=== PATIENT | male | born 1990 | race American Indian/Alaskan Native ===

== ENCOUNTER 2016-11-06 05:15 | Emergency (ER) | payer SELFPAY ==
[2016-11-06 05:34] VITALS: BP 130/88
[2016-11-06] MEDS ORDERED: NORCO 5/325 PO ONE (06:04)
--- NOTE | 2016-11-06 06:08 | Emergency Department Report ---
<NERISSA RAY - Last Filed: 11/06/16 06:03> - General Chief Complaint: Upper Respiratory Infection Stated Complaint: BURNING CHEST, FEVER Time Seen by Provider: 11/06/16 06:02 Source: patient Mode of arrival: Ambulatory Limitations: No Limitations - History of Present Illness Initial Comments: 5-year-old -[place] male comes in for complaint of fever cough nasal congestion chest congestion chest pain with burning after coughing. He reports that he had a fever that started on Thursday at 102. All symptoms started on Thursday. Patient reports is been taken Robitussin Motrin and Aleve without much relief. He has no known drug allergies no past medical history. MD Complaint: fever, cough, rhinorrhea, nasal congestion, other (sneezing) - Related Data Previous Rx's Medication Instructions Recorded Last Taken Type Hydroxyzine HCl 25 mg PO Q6HR PRN #16 tablet 02/15/16 Unknown Rx Permethrin 5% [Acticin 5% CREAM] 1 applicatio TP ONCE #60 gm 02/15/16 Unknown Rx Cetirizine HCl [ZyrTEC] 10 mg PO QDAY #30 capsule 11/06/16 Unknown Rx Fluticasone [Flonase] 1 spray NS QDAY #1 bottle 11/06/16 Unknown Rx Promethazine /Codeine 5 ml PO Q6H PRN #100 ml 11/06/16 Unknown Rx [Phenergan/Codeine 6.25-10 mg/5 ml] Allergies Allergy/AdvReac Type Severity Reaction Status Date / Time No Known Allergies Allergy Unverified 02/14/16 16:35 ED Review of Systems ROS: Stated complaint: BURNING CHEST, FEVER Other details as noted in HPI Constitutional: chills, fever ENT: congestion Respiratory: cough, shortness of breath Cardiovascular: chest pain Endocrine: no symptoms reported Gastrointestinal: denies: abdominal pain, nausea, diarrhea Genitourinary: denies: urgency, dysuria ED Past Medical Hx - Past Medical History Previous Medical History?: No - Surgical History Past Surgical History?: No - Social History Smoking Status: Current Every Day Smoker Substance Use Type: Alcohol - Medications Home Medications: Home Medications Medication Instructions Recorded Confirmed Last Taken Type Hydroxyzine HCl 25 mg PO Q6HR PRN #16 tablet 02/15/16 Unknown Rx Permethrin 5% [Acticin 5% CREAM] 1 applicatio TP ONCE #60 gm 02/15/16 Unknown Rx Cetirizine HCl [ZyrTEC] 10 mg PO QDAY #30 capsule 11/06/16 Unknown Rx Fluticasone [Flonase] 1 spray NS QDAY #1 bottle 11/06/16 Unknown Rx Promethazine /Codeine 5 ml PO Q6H PRN #100 ml 11/06/16 Unknown Rx [Phenergan/Codeine 6.25-10 mg/5 ml] ED Physical Exam - General Limitations: No Limitations General appearance: alert, in no apparent distress - Head Head exam: Present: atraumatic, normocephalic - Eye Eye exam: Present: normal appearance, PERRL, EOMI - ENT ENT exam: Present: mucous membranes dry, TM's normal bilaterally - Neck Neck exam: Present: normal inspection, full ROM. Absent: tenderness, lymphadenopathy, thyromegaly - Respiratory Respiratory exam: Present: normal lung sounds bilaterally, chest wall tenderness. Absent: respiratory distress, wheezes - Cardiovascular Cardiovascular Exam: Present: regular rate, normal rhythm, normal heart sounds ED Course Vital Signs 11/06/16 11/06/16 05:21 06:32 Temperature 99.8 F H Pulse Rate 99 H Respiratory 20 20 Rate Blood Pressure 130/88 O2 Sat by Pulse 100 Oximetry ED Medical Decision Making - Medical Decision Making Patient been evaluated by this provider fast track. We will give patient a Brantley to help with this cough as well as his chest discomfort. Would discharge patient on Zyrtec and Flonase. Will give patient promethazine with codeine to help with his cough. Patient verbalized understanding Critical care attestation.: If time is entered above; I have spent that time in minutes in the direct care of this critically ill patient, excluding procedure time. ED Disposition Clinical Impression: Seasonal allergies Disposition: DISCHARGED TO HOME OR SELFCARE Is pt being admited?: No Does the pt Need Aspirin: No Condition: Stable Instructions: Allergies (ED) Additional Instructions: Take medication as prescribed follow up with her primary care provider if no improvement or symptoms get worse Prescriptions: Cetirizine HCl [ZyrTEC] 10 mg PO QDAY #30 capsule Fluticasone [Flonase] 1 spray NS QDAY #1 bottle Promethazine /Codeine [Phenergan/Codeine 6.25-10 mg/5 ml] 5 ml PO Q6H PRN #100 ml PRN Reason: cough Referrals: PRIMARY CARE, [Primary Care Provider] - 3-5 Days Forms: Work/School Release Form(ED) <ROSALBA DELUCA - Last Filed: 11/09/16 02:20> - History of Present Illness Initial Comments: 25yo
== END 2016-11-06 06:36 | disposition home or self-care (01) ==
LOC: ED 05:15
DX: J30.2 Other seasonal allergic rhinitis (principal); F17.200 Nicotine dependence, unspecified, uncomplicated
CPT/HCPCS: 99282

== ENCOUNTER 2018-01-22 13:08 | Emergency (ER) | payer OTHER ==
[2018-01-22 13:48] VITALS: BP 130/67
== END 2018-01-22 17:34 | disposition left against medical advice (07) ==
LOC: ED 13:08
DX: R20.0 Anesthesia of skin (principal); M79.602 Pain in left arm; Z53.21 Procedure and treatment not carried out due to patient leaving prior to being seen by health care provider

== ENCOUNTER 2019-01-08 07:35 | Emergency (ER) | payer OTHER ==
[2019-01-08 07:39] VITALS: BP 135/81
[2019-01-08 08:02] LABS: Basophils # (Auto) 0.1 K/mm3 (0.0-0.1); Basophils % (Auto) 1.3 % (0.0-1.8); Eosinophils # (Auto) 0.2 K/mm3 (0.0-0.4); Eosinophils % (Auto) 5.2 % (0.0-4.3); Hematocrit 46.7 % (35.5-45.6); Hemoglobin 15.7 gm/dl (11.8-15.2); Lymphocytes # (Auto) 1.9 K/mm3 (1.2-5.4); Lymphocytes % (Auto) 48.9 % (13.4-35.0); Mean Corpuscular HGB Conc 34 % (32-34); Mean Corpuscular Volume 89 fl (84-94); Monocytes # (Auto) 0.3 K/mm3 (0.0-0.8); Monocytes % (Auto) 8.2 % (0.0-7.3); Platelet Count 259 K/mm3 (140-440); Red Blood Count 5.22 M/mm3 (3.65-5.03); Red Cell Distribution Width 12.7 % (13.2-15.2)
[2019-01-08] MEDS ORDERED: TORADOL IV ONE (08:13)
[2019-01-08] MEDS ORDERED: ZOFRAN ODT PO ONE (08:13)
[2019-01-08] MEDS ORDERED: NACL 0.9% 1000 ML 1,000 ML IV ONE (08:13)
[2019-01-08 08:14] LABS: Alanine Aminotransferase 20 units/L (7-56); Albumin 4.3 g/dL (3.9-5); BUN/Creatinine Ratio 12; Blood Urea Nitrogen 14 mg/dL (9-20); Hemolysis Index 17
--- NOTE | 2019-01-08 08:19 | Emergency Department Report ---
ED Abdominal Pain HPI - General Chief Complaint: Abdominal Pain Stated Complaint: VOMITING Time Seen by Provider: 01/08/19 08:13 Source: patient Mode of arrival: Ambulatory Limitations: No Limitations - History of Present Illness Initial Comments: Mr. Hartman is a healthy 28-year-old male who presents with nausea vomiting since this morning. Yesterday he "felt funny". He is concerned for alcohol withdrawal. He stopped drinking alcohol 2 days ago. He normally drinks 4-7 shots per day. In order to be healthy he has decided to abstain from alcohol. Denies any pain. No significant past medical history. No history of family illness. He stopped smoking tobacco 10 years ago. He does continue to smoke marijuana. 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 Last physical 4 years ago. -: Gradual, days(s) (1) Severity: mild Consistency: constant Improves With: nothing Worsens With: nothing Context: possible food poisoning Associated Symptoms: nausea, vomiting - Related Data Previous Rx's Medication Instructions Recorded Last Taken Type Permethrin 5% [Acticin 5% CREAM] 1 applicatio TP ONCE #60 gm 02/15/16 Unknown Rx hydrOXYzine HCl [Hydroxyzine HCl] 25 mg PO Q6HR PRN #16 tablet 02/15/16 Unknown Rx Cetirizine HCl [ZyrTEC] 10 mg PO QDAY #30 capsule 11/06/16 Unknown Rx Fluticasone [Flonase] 1 spray NS QDAY #1 bottle 11/06/16 Unknown Rx Promethazine /Codeine 5 ml PO Q6H PRN #100 ml 11/06/16 Unknown Rx [Phenergan/Codeine 6.25-10 mg/5 ml] Promethazine [Phenergan] 25 mg PO Q6HR PRN #10 tab 01/08/19 Unknown Rx Allergies Allergy/AdvReac Type Severity Reaction Status Date / Time No Known Allergies Allergy Verified 01/08/19 07:36 ED Review of Systems ROS: Stated complaint: VOMITING Other details as noted in HPI Comment: All other systems reviewed and negative Constitutional: malaise Gastrointestinal: nausea. denies: abdominal pain ED Past Medical Hx - Past Medical History Previous Medical History?: No - Surgical History Past Surgical History?: No - Social History Smoking Status: Current Every Day Smoker Substance Use Type: Alcohol, Marijuana - Medications Home Medications: Home Medications Medication Instructions Recorded Confirmed Last Taken Type Permethrin 5% [Acticin 5% CREAM] 1 applicatio TP ONCE #60 gm 02/15/16 Unknown Rx hydrOXYzine HCl [Hydroxyzine HCl] 25 mg PO Q6HR PRN #16 tablet 02/15/16 Unknown Rx Cetirizine HCl [ZyrTEC] 10 mg PO QDAY #30 capsule 11/06/16 Unknown Rx Fluticasone [Flonase] 1 spray NS QDAY #1 bottle 11/06/16 Unknown Rx Promethazine /Codeine 5 ml PO Q6H PRN #100 ml 11/06/16 Unknown Rx [Phenergan/Codeine 6.25-10 mg/5 ml] Promethazine [Phenergan] 25 mg PO Q6HR PRN #10 tab 01/08/19 Unknown Rx ED Physical Exam - General Limitations: No Limitations General appearance: alert, in no apparent distress - Head Head exam: Present: atraumatic, normocephalic - Eye Eye exam: Present: normal appearance - ENT ENT exam: Present: mucous membranes moist - Neck Neck exam: Present: normal inspection, full ROM - Respiratory Respiratory exam: Present: normal lung sounds bilaterally. Absent: respiratory distress, wheezes, rales, rhonchi - Cardiovascular Cardiovascular Exam: Present: regular rate, normal rhythm, normal heart sounds. Absent: systolic murmur, diastolic murmur, rubs, gallop - GI/Abdominal GI/Abdominal exam: Present: soft, normal bowel sounds. Absent: distended, tenderness, guarding, rebound - Rectal Rectal exam: Present: deferred - Extremities Exam Extremities exam: Present: normal inspection - Back Exam Back exam: Present: normal inspection - Neurological Exam Neurological exam: Present: alert, oriented X3 - Psychiatric Psychiatric exam: Present: normal affect, normal mood - Skin Skin exam: Present: warm, dry, intact, normal color. Absent: rash ED Course Vital Signs 01/08/19 07:37 Temperature 97.8 F Pulse Rate 80 Respiratory 16 Rate Blood Pressure 135/81 O2 Sat by Pulse 100 Oximetry ED Medical Decision Making - Lab Data Result diagrams: 01/08/19 07:40 01/08/19 07:40 - Medical Decision Making Mr. Hartman appears well. Has had 2 episodes of vomiting today. Suspect food poisoning vs early viral syndrome. He received symptomatic therapy with IVF, IV ketoroac, and IV ondansetron. Prescribed promethazine. Strongly encouraged outpatient physicial Given referral to outpatient medicine physician. I did review labs obtained which were unremarkable. Critical care attestation.: If time is entered above; I have spent that time in minutes in the direct care of this critically ill patient, excluding procedure time. ED Disposition Clinical Impression: Vomiting, Dehydration Disposition: DC-01 TO HOME OR SELFCARE Is pt being admited?: No Does the pt Need Aspirin: No Condition: Stable Instructions: Acute Nausea and Vomiting (ED), Dehydration (ED) Prescriptions: Promethazine [Phenergan] 25 mg PO Q6HR PRN #10 tab PRN Reason: Nausea Referrals: DEB ROBLERO MD [Staff Physician] - 3-5 Days Forms: Work/School Release Form(ED)
[2019-01-08 08:37] LABS: Bilirubin,Urine NEG (Negative); Color,Urine Yellow (Yellow)
[2019-01-08 08:38] LABS: Blood,Urine NEG (Negative); Mucus,Urine FEW /HPF; Protein,Urine <15 mg/dL mg/dL (Negative)
== END 2019-01-08 09:22 | disposition home or self-care (01) ==
LOC: ED 07:35
DX: E86.0 Dehydration (principal); F17.200 Nicotine dependence, unspecified, uncomplicated; F12.10 Cannabis abuse, uncomplicated
CPT/HCPCS: 36415; 80053; 81001; 83690; 85025; 96361; 96374; 96375; 99283; J1885; J7030; Q0162

== ENCOUNTER 2020-02-25 08:32 | Emergency (ER) | payer OTHER ==
[2020-02-25 12:17] LABS: Basophils % (Auto) 0.5 % (0.0-1.8); Eosinophils # (Auto) 0.1 K/mm3 (0.0-0.4); Eosinophils % (Auto) 1.4 % (0.0-4.3); Hematocrit 48.5 % (35.5-45.6); Mean Corpuscular HGB Conc 33 % (32-34); Mean Corpuscular Volume 89 fl (84-94); Monocytes # (Auto) 0.3 K/mm3 (0.0-0.8); Monocytes % (Auto) 6.5 % (0.0-7.3); Platelet Count 289 K/mm3 (140-440); Red Blood Count 5.47 M/mm3 (3.65-5.03)
[2020-02-25] MEDS ORDERED: ONDANSETRON 4 MG/2 ML INJ IV ONE (12:32)
[2020-02-25] MEDS ORDERED: HYOSCYAMINE SUBL 0.125 MG TAB SL ONE (12:32)
[2020-02-25] MEDS ORDERED: SODIUM CHLORIDE 0.9% 1000 ML 1,000 ML IV ONE (12:32)
[2020-02-25 12:33] LABS: Alanine Aminotransferase 14 units/L (7-56); BUN/Creatinine Ratio 9; Blood Urea Nitrogen 9 mg/dL (9-20); Hemolysis Index 15
--- NOTE | 2020-02-25 12:34 | Emergency Department Report ---
ED N/V/D HPI - General Chief complaint: Nausea/Vomiting/Diarrhea Stated complaint: N/V Time Seen by Provider: 02/25/20 12:26 Source: patient Mode of arrival: Ambulatory Limitations: No Limitations - History of Present Illness Initial comments: Patient is a 29-year-old male who presents emergency room with complaints of nausea, vomiting, diarrhea that began this morning. He states he has had multiple episodes of each. He states that the last 2 days he had multiple alcoholic drinks including beer and liquor. He states he previously had not had any alcohol in the last 4 years and then just went out with his friends the last 2 days and was drinking. He denies any fever, abdominal pain, urinary symptoms, hematochezia, melena, hematemesis. He endorses marijuana use. He denies any past medical history allergies medications. He denies any SI or HI. - Related Data Previous Rx's Medication Instructions Recorded Last Taken Type Permethrin 5% [Acticin 5% CREAM] 1 applicatio TP ONCE #60 gm 02/15/16 Unknown Rx hydrOXYzine HCL [Hydroxyzine HCl] 25 mg PO Q6HR PRN #16 tablet 02/15/16 Unknown Rx Cetirizine HCl [ZyrTEC] 10 mg PO QDAY #30 capsule 11/06/16 Unknown Rx Fluticasone [Flonase] 1 spray NS QDAY #1 bottle 11/06/16 Unknown Rx Promethazine /Codeine 5 ml PO Q6H PRN #100 ml 11/06/16 Unknown Rx [Phenergan/Codeine 6.25-10 mg/5 ml] Promethazine [Phenergan] 25 mg PO Q6HR PRN #10 tab 01/08/19 Unknown Rx Hyoscyamine Subl [Levsin Sl 0.125 0.125 mg SL Q6HR PRN #10 tab 02/25/20 Unknown Rx TAB] Ondansetron [Zofran Odt] 4 mg PO Q8HR PRN #10 tab.rapdis 02/25/20 Unknown Rx Allergies Allergy/AdvReac Type Severity Reaction Status Date / Time No Known Allergies Allergy Verified 01/08/19 07:36 ED Review of Systems ROS: Stated complaint: N/V Other details as noted in HPI Comment: All other systems reviewed and negative ED Past Medical Hx - Past Medical History Previous Medical History?: No - Surgical History Past Surgical History?: No - Social History Smoking Status: Current Every Day Smoker Substance Use Type: Alcohol, Marijuana - Medications Home Medications: Home Medications Medication Instructions Recorded Confirmed Last Taken Type Permethrin 5% [Acticin 5% CREAM] 1 applicatio TP ONCE #60 gm 02/15/16 Unknown Rx hydrOXYzine HCL [Hydroxyzine HCl] 25 mg PO Q6HR PRN #16 tablet 02/15/16 Unknown Rx Cetirizine HCl [ZyrTEC] 10 mg PO QDAY #30 capsule 11/06/16 Unknown Rx Fluticasone [Flonase] 1 spray NS QDAY #1 bottle 11/06/16 Unknown Rx Promethazine /Codeine 5 ml PO Q6H PRN #100 ml 11/06/16 Unknown Rx [Phenergan/Codeine 6.25-10 mg/5 ml] Promethazine [Phenergan] 25 mg PO Q6HR PRN #10 tab 01/08/19 Unknown Rx Hyoscyamine Subl [Levsin Sl 0.125 0.125 mg SL Q6HR PRN #10 tab 02/25/20 Unknown Rx TAB] Ondansetron [Zofran Odt] 4 mg PO Q8HR PRN #10 tab.rapdis 02/25/20 Unknown Rx ED Physical Exam - General Limitations: No Limitations General appearance: alert, in no apparent distress - Head Head exam: Present: atraumatic, normocephalic - Eye Eye exam: Present: normal appearance - ENT ENT exam: Present: mucous membranes moist - Respiratory Respiratory exam: Present: normal lung sounds bilaterally. Absent: respiratory distress, wheezes, rales, rhonchi, stridor, chest wall tenderness, accessory muscle use, decreased breath sounds, prolonged expiratory - Cardiovascular Cardiovascular Exam: Present: regular rate, normal rhythm, normal heart sounds. Absent: systolic murmur, diastolic murmur, rubs, gallop - GI/Abdominal GI/Abdominal exam: Present: soft, normal bowel sounds. Absent: distended, tenderness, guarding, rebound, rigid - Neurological Exam Neurological exam: Present: alert, oriented X3 - Psychiatric Psychiatric exam: Present: normal affect, normal mood - Skin Skin exam: Present: warm, dry, intact ED Course Vital Signs 02/25/20 08:36 Temperature 98.1 F Pulse Rate 76 Respiratory 16 Rate Blood Pressure 140/95 O2 Sat by Pulse 100 Oximetry ED Medical Decision Making - Lab Data Result diagrams: 02/25/20 11:26 02/25/20 11:26 Lab Results 02/25/20 02/25/20 Range/Units 11:26 11:26 WBC 4.8 (4.5-11.0) K/mm3 RBC 5.47 H (3.65-5.03) M/mm3 Hgb 16.0 H (11.8-15.2) gm/dl Hct 48.5 H (35.5-45.6) % MCV 89 (84-94) fl MCH 29 (28-32) pg MCHC 33 (32-34) % RDW 13.0 L (13.2-15.2) % Plt Count 289 (140-440) K/mm3 Lymph % (Auto) 22.0 (13.4-35.0) % Callahan % (Auto) 6.5 (0.0-7.3) % Eos % (Auto) 1.4 (0.0-4.3) % Baso % (Auto) 0.5 (0.0-1.8) % Lymph # 1.0 L (1.2-5.4) K/mm3 Callahan # 0.3 (0.0-0.8) K/mm3 Eos # 0.1 (0.0-0.4) K/mm3 Baso # 0.0 (0.0-0.1) K/mm3 Seg Neutrophils % 69.6 (40.0-70.0) % Seg Neutrophils # 3.3 (1.8-7.7) K/mm3 Sodium 136 L (137-145) mmol/L Potassium 5.2 H (3.6-5.0) mmol/L Chloride 98.1 (98-107) mmol/L Carbon Dioxide 27 (22-30) mmol/L Anion Gap 16 mmol/L BUN 9 (9-20) mg/dL Creatinine 1.0 (0.8-1.5) mg/dL Estimated GFR > 60 ml/min BUN/Creatinine Ratio 9 % Glucose 102 H (75-100) mg/dL Calcium 10.0 (8.4-10.2) mg/dL Total Bilirubin 0.30 (0.1-1.2) mg/dL AST 21 (5-40) units/L ALT 14 (7-56) units/L Alkaline Phosphatase 65 (35-129) units/L Total Protein 7.8 (6.3-8.2) g/dL Albumin 5.0 (3.9-5) g/dL Albumin/Globulin Ratio 1.8 % Lipase 27 (13-60) units/L - Medical Decision Making Patient is a 29-year-old male who presents emergency room with complaints of nausea, vomiting, diarrhea that began this morning. He states he has had multiple episodes of each. He states that the last 2 days he had multiple alcoholic drinks including beer and liquor. He states he previously had not had any alcohol in the last 4 years and then just went out with his friends the last 2 days and was drinking. He denies any fever, abdominal pain, urinary symptoms, hematochezia, melena, hematemesis. He endorses marijuana use. He denies any past medical history allergies medications. He denies any SI or HI. Vitals are stable. No abdominal tenderness on exam, no guarding, no rebound, no rigidity, normal bowel sounds, no peritoneal signs. Labs with evidence of mild dehydration, otherwise stable. Patient given 1 L IV fluids, Zofran, Levsin and symptoms improved and he was feeling much better. Patient was able to tolerate p.o. intake without any difficulty and had no further episodes of vomiting or diarrhea while in the emergency department. Symptoms could most likely be related to alcohol use and marijuana use, lipase is normal, liver function tests are normal. Advised patient to avoid alcohol and marijuana use. Patient given prescription for Zofran and Levsin. Advised patient Please take medication as prescribed. Please avoid alcohol and marijuana use. Increase your water intake over the next several days. Eat a bland liquid diet and slowly advance your diet as tolerated. Follow-up with a primary care doctor. Return to emergency room immediately for any new or worsening symptoms. - Differential Diagnosis Gastroenteritis, cyclical N/V, pancreatitis, hepatitis, CLEMENT[place], dehydration Critical care attestation.: If time is entered above; I have spent that time in minutes in the direct care of this critically ill patient, excluding procedure time. ED Disposition Clinical Impression: Nausea vomiting and diarrhea Disposition: - TO HOME OR SELFCARE Is pt being admited?: No Does the pt Need Aspirin: No Condition: Stable Instructions: Gastroenteritis (ED) Additional Instructions: Please take medication as prescribed. Please avoid alcohol and marijuana use. Increase your water intake over the next several days. Eat a bland liquid diet and slowly advance your diet as tolerated. Follow-up with a primary care doctor. Return to emergency room immediately for any new or worsening symptoms. Prescriptions: Hyoscyamine Subl [Levsin Sl 0.125 TAB] 0.125 mg SL Q6HR PRN #10 tab PRN Reason: diarrhea/abdominal cramping Ondansetron [Zofran Odt] 4 mg PO Q8HR PRN #10 tab.rapdis PRN Reason: Nausea And Vomiting Referrals: ZEN WISE MD [Staff Physician] - 2-3 Days [facility] [Provider Group] - 2-3 Days [facility] [Outside] - 2-3 Days Time of Disposition: 14:19 Print Language: PERSIAN
[2020-02-25 14:49] VITALS: BP 139/74
== END 2020-02-25 14:32 | disposition home or self-care (01) ==
LOC: ED 08:32
DX: R11.2 Nausea with vomiting, unspecified (principal); R19.7 Diarrhea, unspecified; F17.200 Nicotine dependence, unspecified, uncomplicated; F12.10 Cannabis abuse, uncomplicated; Z79.899 Other long term (current) drug therapy
CPT/HCPCS: 36415; 80053; 83690; 85025; 96361; 96374; 99283; J2405; J7030

== ENCOUNTER 2021-08-04 04:16 | Emergency (ER) | payer SELFPAY ==
[2021-08-04 04:22] VITALS: BP 118/80
[2021-08-04 06:05] LABS: Bilirubin,Urine NEG (Negative); Blood,Urine NEG (Negative); Color,Urine Yellow (Yellow); Mucus,Urine FEW /HPF; Protein,Urine <15 mg/dL mg/dL (Negative); Urobilinogen,Urine < 2.0 mg/dL (<2.0)
[2021-08-04 08:46] LABS: Hematocrit 45.1 % (35.5-45.6); Hemoglobin 14.4 gm/dl (11.8-15.2); Mean Corpuscular HGB Conc 32 % (32-34); Mean Corpuscular Volume 89 fl (84-94); Platelet Count 228 K/mm3 (140-440); Red Blood Count 5.09 M/mm3 (3.65-5.03)
[2021-08-04 09:11] LABS: Alanine Aminotransferase 21 units/L (7-56); Albumin 4.5 g/dL (3.9-5); BUN/Creatinine Ratio 9; Blood Urea Nitrogen 9 mg/dL (9-20); Calcium 8.8 mg/dL (8.4-10.2); Hemolysis Index 9
--- NOTE | 2021-08-04 10:02 | Cat Scan Report ---
CT ABDOMEN AND PELVIS WITH CONTRAST INDICATION: abd pain with n/v OMNIPAQUE 300 100ML. TECHNIQUE: Axial CT images were obtained through the abdomen and pelvis after IV contrast. All CT scans at this location are performed using CT dose reduction for ALARA by means of automated exposure control. COMPARISON: None available. FINDINGS: LOWER CHEST: No significant abnormality. LIVER: No significant abnormality. GALLBLADDER: No significant abnormality. BILE DUCTS: No significant abnormality. PANCREAS: No significant abnormality. SPLEEN: No significant abnormality. ADRENALS: No significant abnormality. RIGHT KIDNEY and URETER: Nonobstructing 8 mm right intrarenal stone, unchanged. LEFT KIDNEY and URETER: No significant abnormality. STOMACH and SMALL BOWEL: No significant abnormality. COLON: No significant abnormality. APPENDIX: Normal. PERITONEUM: No free fluid. No free air. No fluid collection. LYMPH NODES: No significant adenopathy. AORTA and ARTERIES: No significant abnormality. IVC and VEINS: No significant abnormality. URINARY BLADDER: No significant abnormality. REPRODUCTIVE ORGANS: No significant abnormality. ADDITIONAL FINDINGS: None. SKELETAL SYSTEM: No significant abnormality. IMPRESSION: 1. Right nephrolithiasis. No ureteral stone or hydronephrosis. 2. No acute inflammatory process or bowel obstruction Signer Name: Everardo Saldana MD Signed: 08/04/2021 9:58 AM Workstation Name: [id number]
--- NOTE | 2021-08-04 11:16 | Emergency Department Report ---
ED Abdominal Pain HPI - General Chief Complaint: Abdominal Pain Stated Complaint: ABDOMINAL PAIN Time Seen by Provider: 08/04/21 07:54 Source: patient Mode of arrival: Ambulatory Limitations: No Limitations - History of Present Illness Initial Comments: This is a 30-year-old male nontoxic, well nourished in appearance, no acute signs of distress presents to the ED with c/o of right flank pain with radiation to right abdomen x several days. Patient denies any nausea or vomiting. Patient describes flank pain as pain. Patient denies chest pain, short of breath, fever, hemoptysis, blood in stool, chills, headache, stiff neck, numbness or tingling. Patient denies any diarrhea or constipation. Denies any blood in stool. Patient denies any recent travels. Patient denies any allergies. MD Complaint: flank pain -: days(s) Location: R flank Radiation: RLQ Migration to: no migration Severity: mild Severity scale (0 -10): 8 Quality: aching Consistency: constant Improves With: nothing Worsens With: nothing Associated Symptoms: denies other symptoms. denies: nausea, vomiting, diarrhea, fever, chills, constipation, dysuria, hematemesis, hematochezia, melena, hematuria, anorexia, syncope - Related Data Previous Rx's Medication Instructions Recorded Last Taken Type Permethrin 5% [Acticin 5% CREAM] 1 applicatio TP ONCE #60 gm 02/15/16 Unknown Rx hydrOXYzine HCL [Hydroxyzine HCl] 25 mg PO Q6HR PRN #16 tablet 02/15/16 Unknown Rx Cetirizine HCl [ZyrTEC] 10 mg PO QDAY #30 capsule 11/06/16 Unknown Rx Fluticasone [Flonase] 1 spray NS QDAY #1 bottle 11/06/16 Unknown Rx Promethazine /Codeine 5 ml PO Q6H PRN #100 ml 11/06/16 Unknown Rx [Phenergan/Codeine 6.25-10 mg/5 ml] Promethazine [Phenergan] 25 mg PO Q6HR PRN #10 tab 01/08/19 Unknown Rx Hyoscyamine Subl [Levsin Sl 0.125 0.125 mg SL Q6HR PRN #10 tab 02/25/20 Unknown Rx TAB] Ondansetron [Zofran Odt] 4 mg PO Q8HR PRN #10 tab.rapdis 02/25/20 Unknown Rx Ketorolac [Toradol] 10 mg PO Q6H PRN #12 tablet 08/04/21 Unknown Rx Ondansetron [Zofran Odt] 4 mg PO Q8HR PRN #12 tab.rapdis 08/04/21 Unknown Rx Allergies Allergy/AdvReac Type Severity Reaction Status Date / Time No Known Allergies Allergy Verified 01/08/19 07:36 ED Review of Systems ROS: Stated complaint: ABDOMINAL PAIN Other details as noted in HPI Comment: All other systems reviewed and negative Constitutional: denies: chills, fever Eyes: denies: eye pain, eye discharge, vision change ENT: denies: ear pain, throat pain Respiratory: denies: cough, shortness of breath, wheezing Cardiovascular: denies: chest pain, palpitations Endocrine: no symptoms reported Gastrointestinal: abdominal pain. denies: nausea, vomiting, diarrhea, constipation, hematemesis, melena, hematochezia Genitourinary: denies: urgency, dysuria, frequency, hematuria, discharge, testicular pain, testicular mass Musculoskeletal: denies: back pain, joint swelling, arthralgia Skin: denies: rash, lesions Neurological: denies: headache, weakness, paresthesias Psychiatric: denies: anxiety, depression Hematological/Lymphatic: denies: easy bleeding, easy bruising ED Past Medical Hx - Past Medical History Previous Medical History?: No - Surgical History Past Surgical History?: No - Social History Smoking Status: Current Every Day Smoker Substance Use Type: Alcohol, Marijuana - Medications Home Medications: Home Medications Medication Instructions Recorded Confirmed Last Taken Type Permethrin 5% [Acticin 5% CREAM] 1 applicatio TP ONCE #60 gm 02/15/16 Unknown Rx hydrOXYzine HCL [Hydroxyzine HCl] 25 mg PO Q6HR PRN #16 tablet 02/15/16 Unknown Rx Cetirizine HCl [ZyrTEC] 10 mg PO QDAY #30 capsule 11/06/16 Unknown Rx Fluticasone [Flonase] 1 spray NS QDAY #1 bottle 11/06/16 Unknown Rx Promethazine /Codeine 5 ml PO Q6H PRN #100 ml 11/06/16 Unknown Rx [Phenergan/Codeine 6.25-10 mg/5 ml] Promethazine [Phenergan] 25 mg PO Q6HR PRN #10 tab 01/08/19 Unknown Rx Hyoscyamine Subl [Levsin Sl 0.125 0.125 mg SL Q6HR PRN #10 tab 02/25/20 Unknown Rx TAB] Ondansetron [Zofran Odt] 4 mg PO Q8HR PRN #10 tab.rapdis 02/25/20 Unknown Rx Ketorolac [Toradol] 10 mg PO Q6H PRN #12 tablet 08/04/21 Unknown Rx Ondansetron [Zofran Odt] 4 mg PO Q8HR PRN #12 tab.rapdis 08/04/21 Unknown Rx ED Physical Exam - General Limitations: No Limitations General appearance: alert, in no apparent distress - Head Head exam: Present: atraumatic, normocephalic - Eye Eye exam: Present: normal appearance - Neck Neck exam: Present: normal inspection, full ROM. Absent: lymphadenopathy - Respiratory Respiratory exam: Absent: respiratory distress - Cardiovascular Cardiovascular Exam: Present: regular rate. Absent: systolic murmur, diastolic murmur, rubs, gallop - GI/Abdominal GI/Abdominal exam: Present: soft, normal bowel sounds. Absent: distended, tenderness, guarding, rebound, rigid, diminished bowel sounds - Extremities Exam Extremities exam: Present: normal inspection, full ROM, normal capillary refill. Absent: tenderness - Back Exam Back exam: Present: normal inspection, full ROM, CVA tenderness (R). Absent: tenderness, CVA tenderness (L), muscle spasm, paraspinal tenderness, vertebral tenderness, rash noted - Neurological Exam Neurological exam: Present: alert, oriented X3, normal gait - Psychiatric Psychiatric exam: Present: normal affect, normal mood - Skin Skin exam: Present: warm, dry, intact, normal color. Absent: rash ED Course Vital Signs 08/04/21 04:19 Temperature 98.6 F Pulse Rate 88 Respiratory 18 Rate Blood Pressure 118/80 O2 Sat by Pulse 99 Oximetry - Reevaluation(s) Reevaluation #1: 08/04/21 11:19 Patient is speaking in full sentences with no signs of distress noted. ED Medical Decision Making - Lab Data Result diagrams: 08/04/21 08:10 08/04/21 08:10 Lab Results 08/04/21 08/04/21 08/04/21 Range/Units 08:10 08:10 Unknown WBC 3.1 L (4.5-11.0) K/mm3 RBC 5.09 H (3.65-5.03) M/mm3 Hgb 14.4 (11.8-15.2) gm/dl Hct 45.1 (35.5-45.6) % MCV 89 (84-94) fl MCH 28 (28-32) pg MCHC 32 (32-34) % RDW 13.0 L (13.2-15.2) % Plt Count 228 (140-440) K/mm3 [place] % (Auto) Equipment Validation Specialist Sodium 139 (137-145) mmol/L Potassium 4.4 (3.6-5.0) mmol/L Chloride 102.5 (98-107) mmol/L Carbon Dioxide 24 (22-30) mmol/L Anion Gap 17 mmol/L BUN 9 (9-20) mg/dL Creatinine 1.0 (0.8-1.3) mg/dL Estimated GFR > 60 ml/min BUN/Creatinine Ratio 9 % Glucose 94 (75-100) mg/dL Calcium 8.8 (8.4-10.2) mg/dL Total Bilirubin 0.20 (0.1-1.2) mg/dL AST 24 (5-40) units/L ALT 21 (7-56) units/L Alkaline Phosphatase 51 (35-129) units/L Total Protein 7.0 (6.3-8.2) g/dL Albumin 4.5 (3.9-5) g/dL Albumin/Globulin Ratio 1.8 % Lipase 37 (13-60) units/L Urine Color Yellow (Yellow) Urine Turbidity Clear (Clear) Urine pH 5.0 (5.0-7.0) Ur Specific [place] 1.011 (1.003-1.030) Urine Protein <15 mg/dl (Negative) mg/dL Urine Glucose (UA) Neg (Negative) mg/dL Urine Ketones Neg (Negative) mg/dL Urine Blood Neg (Negative) Urine Nitrite Neg (Negative) Urine Bilirubin Neg (Negative) Urine Urobilinogen < 2.0 (<2.0) mg/dL Ur Leukocyte Esterase Tr (Negative) Urine WBC (Auto) 9.0 H (0.0-6.0) /HPF Urine RBC (Auto) 1.0 (0.0-6.0) /HPF U Epithel Cells (Auto) < 1.0 (0-13.0) /HPF Urine Mucus Few /HPF - Medical Decision Making This is a 30-year-old male that presents with kidney stone. Patient stable he was examined by me. Negative signs of symptoms of appendicitis. Labs obtained. UA obtained. CT of abdomen obtained and dictated by the radiologist. Patient is notified of the report with no questions noted by the patient. Vital signs are stable prior to discharge. Patient received medical treatment in the ED which patient stated symptoms has resovled and subsided. Was instructed note to operate any machinery due to possible drowsiness and stated someone will drive the patient home. A by mouth challenge has been obtained and patient tolerated well with no nausea vomiting. Patient was notified of strict precatuions of appendictis symptoms and to return to the ED if symptoms occurs as soon as possible. Patient was also instructed to Follow-up with a primary care doctor in 3-5 days or if symptoms worsen and continue return to emergency room as soon as possible. At time of discharge, the patient does not seem toxic or ill in appearance. No acute signs of distress noted. Patient agrees to discharge treatment plan of care. No further questions noted by the patient. Critical care attestation.: If time is entered above; I have spent that time in minutes in the direct care of this critically ill patient, excluding procedure time. ED Disposition Clinical Impression: Right nephrolithiasis Disposition: 01 HOME / SELF CARE / HOMELESS Is pt being admited?: No Does the pt Need Aspirin: No Condition: Stable Instructions: Kidney Stones, [id number] Additional Instructions: Follow-up with a primary care doctor in 3-5 days or if symptoms worsen and continue return to emergency room as soon as possible. Prescriptions: Ketorolac [Toradol] 10 mg PO Q6H PRN #12 tablet PRN Reason: Pain Ondansetron [Zofran Odt] 4 mg PO Q8HR PRN #12 tab.rapdis PRN Reason: Nausea Referrals: PRIMARY CARE, [Primary Care Provider] - 3-5 Days ZEN WISE MD [Staff Physician] - 3-5 Days Forms: Work/School Release Form(ED) Time of Disposition: 11:21
[2021-08-04 17:06] LABS: Total Cells Counted 100
[2021-08-04 17:07] LABS: Platelet Estimate Consistent w Auto; RBC Morphology Normal
== END 2021-08-04 12:27 | disposition home or self-care (01) ==
LOC: ED 04:16
DX: N20.0 Calculus of kidney (principal)
CPT/HCPCS: 36415; 74177; 80053; 81001; 83690; 85007; 85025; 87086; 99284; Q9967